=== PATIENT | female | born 1985 | race Caucasian/White ===

== ENCOUNTER 2016-08-09 01:59 | Emergency (ER) | payer MEDICAID ==
--- NOTE | 2016-08-09 02:42 | ERNOTE ---
Back Pain ER HPI Time Seen by Provider: 08/09/16 02:13 Source: patient Exam Limitations: no limitations Immunizations: IMMUNIZATION HX Immunizations Up to Date Yes History of Influenza Vaccine No Hx Pneumococcal Vaccination No Allergies/Adverse Reactions: Allergies ceftriaxone sodium [From Rocephin] Allergy (Verified 10/27/13 15:19) ketorolac tromethamine [From Toradol] Allergy (Verified 08/09/16 02:44) Anaphylaxis Penicillins Allergy (Verified 10/27/13 15:19) tramadol Allergy (Verified 08/09/16 02:44) Anaphylaxis Home Medications: HOME MEDICATIONS Albuterol Sulfate 10/27/13 [Last Taken Unknown] Proventil 5 MG/ML Solution 10/27/13 [Last Taken Unknown] Xanax 10/27/13 [Last Taken Unknown] Naproxen [Naprosyn] 500 mg PO BID PRN #20 tab 08/09/16 [Last Taken Unknown] Sulfamethoxazole/Trimethoprim [Bactrim Ds] 1 tab PO BID #28 tab 08/09/16 [Last Taken Unknown] Narrative: This patient comes into our emergency room shortly after she left the emergency room in [place], [place]. Patient is complaining of bilateral flank pain. She is also complaining of burning upon urination. She denies any fevers or chills. She has been given lorazepam 1 mg at the previous facility. Review of Systems - Review of Systems Constitutional: Present: no symptoms reported EYE: Present: no symptoms reported ENT: Present: no symptoms reported Respiratory: Present: no symptoms reported Cardiology: Present: no symptoms reported Gastrointestinal/Abdominal: Present: no symptoms reported Genitourinary: Present: See HPI, dysuria, other - bilateral flank pain - Patient's Past Medical History Patient History - Medical: No pertinent hx, UTI'S Patient History - Cardiac/Respiratory: Asthma Patient History - Cancer: No Hx of Cancer Patient History - Surgical Procedures: Appendectomy, Cholecystectomy, Hysterectomy, Other Patient History - Other: None - Social History Living Situations: home Abuse History: No History of abuse Psych History: No pertinent hx Smoking Status: Current every day smoker Alcohol Use: none Drug Use: none - Immunizations Immunizations Up to Date: Yes Hx Pneumococcal Vaccination: No History of Influenza Vaccine: No Physical Exam - Physical Exam General Appearance: Present: wd/wn, alert, no apparent distress Ears, Nose, Throat: Present: normal ENT inspection Neck: Present: normal inspection Respiratory: Present: no respiratory distress, normal breath sounds, no accessory muscle use, chest nontender, lungs clear Cardiovascular/Chest: Present: regular rate, rhythm, no murmur, normal peripheral pulses Back Exam: Present: other - when I just touch the patient's back she jumps. The patient's reaction is out of proportion to this examiner's exam. He has no vesicular lesions or any other kind of lesions on her back. Abdomen is soft and benign Extremity Exam: Present: normal inspection Neurological Exam: Present: alert, oriented, normal mood/affect - patient is jittery and she is unable to sit still, she states secondary to the pain. ED Progress - Results and Orders Patient's Lab Results:: I have reviewed the patient's lab results. - from a previous facility done just hours ago - Vital Signs Patient's Vital Signs:: I have reviewed the patient's vital signs. Vital Signs: Vital Signs 08/09/16 02:04 Temperature 35.7 C L Pulse Rate 111 H Respiratory 20 Rate Blood Pressure 126/62 O2 Sat by Pulse 97 Oximetry - Progress/Reassessment Chief Complaint: Back Pain Plan - Plan Plan: The UCS done just earlier at another facility reveals THC and Nitrites. Ct does NOT show nephrolithiasis. Pt will be treated for pyelonephritis Departure Clinical Impression: Pyelonephritis - Departure Disposition: Home self-care Condition: Fair Instructions: Flank Pain, [id number] Referrals: Jeremias Craig MD [Primary Care Provider] - Prescriptions: Naproxen [Naprosyn] 500 mg PO BID PRN #20 tab PRN Reason: Pain Sulfamethoxazole/Trimethoprim [Bactrim Ds] 1 tab PO BID #28 tab
[2016-08-09] MEDS ORDERED: SULFAMETHOXAZOLE/TRIMETHOPRIM 1 TAB TABLET ONE (03:01)
[2016-08-09] MEDS ORDERED: NAPROXEN SODIUM 550 MG TABLET ONE (03:01)
[2016-08-09] MEDS ORDERED: SULFAMETHOXAZOLE/TRIMETHOPRIM 1 TAB TABLET PO ONE (03:05)
[2016-08-09] MEDS ORDERED: NAPROXEN SODIUM 550 MG TABLET PO ONE (03:05)
--- OUTSIDE RECORDS SUMMARY | 2016-08-09 03:09 | XMS REPORT | Continuity of Care Document ---
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 Alwaysverify current medications with the patient. Prescription Sig. Disp. Refills Start Date End Date Status diazepam (VALIUM) 10 Take 1 tablet by 0 12/12/2015 Active MG tablet mouth 3 (three) times daily as needed. ibuprofen Take 800 mg by mouth Active (ADVIL,MOTRIN) 800 every 8 (eight) MG tablet hours as needed for Pain. venlafaxine HCl Take 75 mg by mouth Active (EFFEXOR-XR) 75 MG daily. 24 hr capsule albuterol Take 2.5 mg by Active (PROVENTIL) (5 nebulization every 6 MG/ML) 0.5% (six) hours as nebulizer solution needed for Wheezing. budesonide-formotero Inhale 2 puffs into Active l (SYMBICORT) the lungs daily. 160-4.5 MCG/ACT inhaler Albuterol (PROVENTIL Inhale 2 puffs into Active IN) the lungs every 4 (four) hours as needed. BIOTIN PO Take 1 capsule by Active mouth daily. HYDROcodone-acetamin Take 1-2 tablets by 40 tablet 0 12/18/2015 Active ophen (NORCO) mouth every 4 (four) 7.5-325 MG per hours as needed for tablet Pain (not to exceed 8 tablets in 24 hr period). promethazine Take 1 tablet by 20 tablet 0 12/18/2015 Active (PHENERGAN) 25 MG mouth every 6 (six) tablet hours as needed for Nausea. carisoprodol (SOMA) Take 1 tablet by 0 12/18/2015 Active 350 MG tablet mouth 4 (four) times daily as needed. HYDROcodone-acetamin Take 1-2 tablets by 0 12/17/2015 Active ophen (NORCO) 5-325 mouth every 6 (six) MG per tablet hours as needed. Active Problems Not on file Social History Tobacco Use Types Packs/Day Years Used Date Current Every Day Smoker Cigarettes Tobacco Cessation:Ready to Quit: Yes; Counseling Given: Yes Comments:[place] Quitline Alcohol Use Drinks/Week oz/Week Comments No 0 Standard drinks or equivalent 0.0 Last Filed Vital Signs Vital Sign Reading Time Taken Blood Pressure 112/72 12/16/2015 2:14 PM CDT Pulse 80 12/16/2015 2:14 PM CDT Temperature - - Respiratory Rate 16 12/16/2015 2:14 PM CDT Height 1.613 m (5' 3.5") 12/16/2015 2:14 PM CDT Weight 61.78 kg (136 lb 3.2 oz) 12/16/2015 2:14 PM CDT Body Mass Index 23.75 12/16/2015 2:14 PM CDT Oxygen Saturation - - Plan of Care Health Maintenance Due Date Last Done Comments Pneumococcal Medium Risk 19-64 yo (1 of 1 - PPSV23) 2004 Tetanus/Pertussis (1 - Tdap) 2004 Pap Smear 2006 Influenza Immunization (#1) 2016 Results from Last 3 Months Not on file
[2016-08-09 03:12] VITALS: BP 97/56
== END 2016-08-09 03:10 | disposition home or self-care (01) ==
LOC: ER 01:59
DX: N10 Acute pyelonephritis (principal); Z72.0 Tobacco use